=== PATIENT | female | born 1995 | race Caucasian/White ===

== ENCOUNTER 2018-03-03 09:44 | Outpatient (CLI) | payer MEDICAID, SELFPAY ==
[2018-03-03 10:24] LABS: Glucose,1 Hr (Glucola) 108 mg/dL (80-140)
[2018-03-03 11:48] LABS: HCT 32.4 % (36.0-46.0); HGB 10.9 g/dL (12.0-15.5); Mean Corp. HGB Concentration 33.6 g/dL (32.0-36.0); Mean Corpuscular Hemoglobin 29.8 pg (27.0-33.0); Mean Corpuscular Volume 88.5 fL (80-95); Platelet Count 259 x1000/uL (130-400); RBC 3.66 m/cumm (4.00-5.20); RBC Distribution Width 12.4 % (11.7-14.6); White Blood Cell Count 6.92 k/cumm (4.4-10.8)
== END 2018-03-03 10:04 ==
PROVIDERS: PCP Internal Medicine; Visit Provider Advanced Practice Midwife
DX: Z34.93 Encounter for supervision of normal pregnancy, unspecified, third trimester (principal)
CPT/HCPCS: 36415; 82950; 85027

== ENCOUNTER 2018-04-13 14:15 | Outpatient (REF) | payer MEDICAID, SELFPAY ==
[2018-04-17 16:07] LABS: Chlamydia Result Negative; GC Result Negative; Specimen Description CERVIX
== END 2018-04-13 14:35 ==
LOC: LBN 14:15
PROVIDERS: PCP Internal Medicine; Visit Provider Nurse Practitioner
DX: N89.8 Other specified noninflammatory disorders of vagina (principal); Z11.3 Encounter for screening for infections with a predominantly sexual mode of transmission
CPT/HCPCS: 87491; 87591

== ENCOUNTER 2018-04-26 14:00 | Observation (INO) | payer MEDICAID, SELFPAY | END 2018-04-26 19:05 | disposition home or self-care (01) | PROVIDERS: Admitting Provider Advanced Practice Midwife; PCP Internal Medicine; Visit Provider Advanced Practice Midwife | DX: O47.03 False labor before 37 completed weeks of gestation, third trimester (principal); Z04.3 Encounter for examination and observation following other accident; Z3A.36 36 weeks gestation of pregnancy | CPT/HCPCS: G0378 ==

== ENCOUNTER 2018-04-28 12:02 | Outpatient (REF) | payer MEDICAID, SELFPAY | END 2018-04-28 12:22 | LOC: LBN 12:02 | PROVIDERS: PCP Internal Medicine; Visit Provider Nurse Practitioner | DX: Z34.93 Encounter for supervision of normal pregnancy, unspecified, third trimester (principal); Z36.85 Encounter for antenatal screening for Streptococcus B | CPT/HCPCS: 87081 ==

== ENCOUNTER 2018-05-10 09:40 | Outpatient (CLI) | payer MEDICAID, SELFPAY | END 2018-05-10 10:00 | PROVIDERS: PCP Internal Medicine; Visit Provider Advanced Practice Midwife | DX: O9A.213 Injury, poisoning and certain other consequences of external causes complicating pregnancy, third trimester (principal); Z04.3 Encounter for examination and observation following other accident; W19.XXXA Unspecified fall, initial encounter; Z3A.38 38 weeks gestation of pregnancy | CPT/HCPCS: 59025 ==

== ENCOUNTER 2018-05-22 06:45 | Outpatient (CLI) | payer MEDICAID, SELFPAY ==
[2018-05-22 08:05] LABS: ROM Plus Negative
== END 2018-05-22 07:05 ==
PROVIDERS: PCP Internal Medicine; Visit Provider Obstetrics & Gynecology
DX: O36.8130 Decreased fetal movements, third trimester, not applicable or unspecified (principal); Z3A.40 40 weeks gestation of pregnancy
CPT/HCPCS: 84112; 59025

== ENCOUNTER 2018-05-26 10:06 | Outpatient (CLI) | payer MEDICAID, SELFPAY | END 2018-05-26 10:26 | PROVIDERS: PCP Internal Medicine; Visit Provider Advanced Practice Midwife | DX: O48.0 Post-term pregnancy (principal); Z3A.40 40 weeks gestation of pregnancy | CPT/HCPCS: 59025 ==

== ENCOUNTER 2018-05-28 19:20 | Inpatient (IN) | payer MEDICAID, SELFPAY ==
[2018-05-28 20:18] LABS: HCT 32.7 % (36.0-46.0); HGB 10.4 g/dL (12.0-15.5); Mean Corp. HGB Concentration 31.8 g/dL (32.0-36.0); Mean Corpuscular Hemoglobin 25.6 pg (27.0-33.0); Mean Corpuscular Volume 80.5 fL (80-95); Mean Platelet Volume 10.1 fL (8.0-11.0); Platelet Count 245 x1000/uL (130-400); RBC 4.06 m/cumm (4.00-5.20); RBC Distribution Width 14.4 % (11.7-14.6)
[2018-05-28] MEDS: Lactated Ringers 1,000 ML 125 ML IV (20:38)
[2018-05-29] MEDS: Acetaminophen 325 MG TAB 650 MG PO ×4 (01:13→19:51)
[2018-05-29] MEDS: Ibuprofen 600 MG TAB PO ×4 (01:14→19:51)
[2018-05-29] MEDS: Hamamelis Leaf/Glycerin 100 EACH BOX PR (08:24)
[2018-05-30] MEDS: Acetaminophen 325 MG TAB 650 MG PO ×4 (02:38→21:00)
[2018-05-30] MEDS: Ibuprofen 600 MG TAB PO ×4 (02:39→21:00)
[2018-05-31] MEDS: Acetaminophen 325 MG TAB 650 MG PO ×3 (01:28→12:17)
[2018-05-31] MEDS: Ibuprofen 600 MG TAB PO ×2 (06:53→12:16)
== END 2018-05-31 14:00 | disposition home or self-care (01) | DRG 807 ==
PROVIDERS: Admitting Provider Advanced Practice Midwife; PCP Internal Medicine; Visit Provider Advanced Practice Midwife
DX: O69.81X0 Labor and delivery complicated by cord around neck, without compression, not applicable or unspecified (principal); Z37.0 Single live birth; O48.0 Post-term pregnancy; Z3A.41 41 weeks gestation of pregnancy; O99.824 Streptococcus B carrier state complicating childbirth
CPT/HCPCS: 36415; 85027; 86850; 86900; 86901; J2540

== ENCOUNTER 2018-11-22 13:59 | Outpatient (CLI) | payer MEDICAID, SELFPAY ==
[2018-11-22 15:05] LABS: HCT 35.9 % (36.0-46.0); HGB 11.2 g/dL (12.0-15.5)
== END 2018-11-22 14:19 ==
PROVIDERS: PCP Internal Medicine; Visit Provider Obstetrics & Gynecology
DX: Z30.2 Encounter for sterilization (principal); Z01.812 Encounter for preprocedural laboratory examination
CPT/HCPCS: 36415; 86850; 86900; 86901; 85014; 85018

== ENCOUNTER 2018-11-23 11:32 | Day surgery (SDC) | payer MEDICAID, SELFPAY ==
[2018-11-23] VITALS (10 sets, daily range): BP systolic 100–136; BP diastolic 63–90; PULSE 65–103; RESP 13–24; TEMP 36.3–37.1; O2SAT 99–100
--- NOTE | 2018-11-23 08:37 | W.PM.HP.N ---
Assessment and Plan (1) Request for sterilization: Current visit: Yes Status: Acute plan laparoscopic bilateral salpingectomy/ligation consents signed with patient History of Present Illness Chief Complaint: desires permanennt [id number] YO desires permanent sterilization she has been counselled on non permanent methods of control She is 100% sure she wants permanent sterilization and has been counselled on the risk of regret especially in younger women and the risk of ectopic with failure Narrative: 24 Review of Systems Review of Systems All systems reviewed & are unremarkable except as noted in HPI and below PFSH Medical History Syncope, vasovagal (Resolved) Surgical History Cholecystectomy (09/10/16) Family History Mother No problems noted. Father Essential hypertension Grandmother Diabetes Grandfather H/O heart surgery Diabetes Grandmother No problems noted. 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 Pets and animals: No Duration: 45-60 minutes/day Frequency: 3-4 times per week Special gael needs: No Seatbelt use: always Helmet use: Yes Drive intox or ride w/intox retail delivery driver: No Water heater temp set <120 deg: Yes Working smoke detector in home: Yes Fire extinguisher in home: Yes Carbon monox detector in home: Yes Firearms in home: Yes Do you feel safe at home: Yes Do you feel safe in your relationship?: Yes Victim of physical abuse: No Victim of emotional abuse: No Victim of sexual abuse: No History History 3 Para 2 Hx # Term Pregnancies 2 Multiple births 0 Hx # Pregnancies 0 Ectopic pregnancies 0 AB induced 0 Hx Number of Living Children 2 AB spontaneous 1 Past Pregnancies Del. Date GA/Weeks # Outcome Route Wgt Sex Labor Lgth Anesthesia Location Prov Complic 06/29/18 41 No Successful vaginal 3.969 kg Male Kamilla Driver CNM Delivery Date: 06/29/18 On 07/07/18 @ 10:46 LabjeannetteGrazyna Loose nuchal cord, easily reduced. Attempt made to deliver shoulder, then legs were placed in [place], anterior shoulder easily delivered, with gentle pushing, the posterior shoulder was delivered. Meds Home Medications Medication Instructions Recorded Confirmed Type midodrine 2.5 mg tablet 2.5 mg PO DAILY 10/09/18 11/22/18 History rosuvastatin 10 mg tablet 5 mg PO DAILY 10/09/18 11/22/18 History biotin 1 mg PO DAILY 11/22/18 11/22/18 History ferrous sulfate [iron] 325 mg PO DAILY 11/22/18 11/22/18 History vitamin D3-folic acid 1 tab PO DAILY 11/22/18 11/22/18 History Allergies Allergy/AdvReac Type Severity Reaction Status Date / Time No Known Drug Allergies Allergy Verified 11/22/18 14:09 Exam Const General: healthy appearing Chest Chest: normal inspection of the chest Resp Effort & Inspection: normal respiratory effort Auscultation: clear to auscultation bilaterally Cardio Rate: regular rate Rhythm: regular rhythm Heart Sounds: S1 normal and S2 normal GI Inspection: normal to inspection Palpation: soft Percussion: normal to percussion Auscultation: normal bowel sounds
--- NOTE | 2018-11-23 08:45 | HPE_ITS ---
Assessment and Plan (1) Request for sterilization: Current visit: Yes Status: Acute plan laparoscopic bilateral salpingectomy/ligation consents signed with patient History of Present Illness Chief Complaint: desires permanennt sterilization 23 YO desires permanent sterilization she has been counselled on non permanent methods of control She is 100% sure she wants permanent sterilization and has been counselled on the risk of regret especially in younger women and the risk of ectopic with failure Narrative: 24 Review of Systems Review of Systems All systems reviewed & are unremarkable except as noted in HPI and below PFSH Medical History Syncope, vasovagal (Resolved) Surgical History Cholecystectomy (09/10/16) Family History Mother No problems noted. Father Essential hypertension Grandmother Diabetes Grandfather H/O heart surgery Diabetes Grandmother No problems noted. 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 Pets and animals: No Duration: 45-60 minutes/day Frequency: 3-4 times per week Special gael needs: No Seatbelt use: always Helmet use: Yes Drive intox or ride w/intox emergency vehicle driver: No Water heater temp set <120 deg: Yes Working smoke detector in home: Yes Fire extinguisher in home: Yes Carbon monox detector in home: Yes Firearms in home: Yes Do you feel safe at home: Yes Do you feel safe in your relationship?: Yes Victim of physical abuse: No Victim of emotional abuse: No Victim of sexual abuse: No History History 3 Para 2 Hx # Term Pregnancies 2 Multiple births 0 Hx # Pregnancies 0 Ectopic pregnancies 0 AB induced 0 Hx Number of Living Children 2 AB spontaneous 1 Past Pregnancies Del. Date GA/Weeks # Outcome Route Wgt Sex Labor Lgth Anesthesia Location Prov Complic 06/29/18 41 No Successful vaginal 3.969 kg Male Kamilla Driver CNM Delivery Date: 06/29/18 On 07/07/18 @ 10:46 LabjeannetteGrazyna Loose nuchal cord, easily reduced. Attempt made to deliver shoulder, then legs were placed in [place], anterior shoulder easily delivered, with gentle pushing, the posterior shoulder was delivered. Meds Home Medications Medication Instructions Recorded Confirmed Type midodrine 2.5 mg tablet 2.5 mg PO DAILY 10/09/18 11/22/18 History rosuvastatin 10 mg tablet 5 mg PO DAILY 10/09/18 11/22/18 History biotin 1 mg PO DAILY 11/22/18 11/22/18 History ferrous sulfate [iron] 325 mg PO DAILY 11/22/18 11/22/18 History vitamin D3-folic acid 1 tab PO DAILY 11/22/18 11/22/18 History Allergies Allergy/AdvReac Type Severity Reaction Status Date / Time No Known Drug Allergies Allergy Verified 11/22/18 14:09 Exam Const General: healthy appearing Chest Chest: normal inspection of the chest Resp Effort & Inspection: normal respiratory effort Auscultation: clear to auscultation bilaterally Cardio Rate: regular rate Rhythm: regular rhythm Heart Sounds: S1 normal and S2 normal GI Inspection: normal to inspection Palpation: soft Percussion: normal to percussion Auscultation: normal bowel sounds
[2018-11-23] MEDS: Lactated Ringers 1,000 ML 125 ML IV (12:18)
--- NOTE | 2018-11-23 13:32 | FALL_PTH ---
PATIENT: Carlos Enrique Lewis LOC: [facility] U#:[id number] AGE/SX: 23/F ROOM: RE11/23/[address]: Tabitha Argueta MD : 1995 BED: DIS: 11/23/2018 SPEC #: [id number] RECD: 11/23/18 18:08 STATUS: [facility] #: [id number] OLIVER: 11/23/18 13:[address]: Tabitha Argueta DEPT: Surgical Specimen RECD BY: Roya Reid ENTERED: 11/23/18 18:09 SP TYPE: Fall OTHR DR: Janine Padron Tissues: 1 - FALLOPIAN TUBE (STERILIZATION) 2 - FALLOPIAN TUBE (STERILIZATION) Procedures: GROSS AND MICRO LEVEL 2 Comments: [id number]
[2018-11-23] MEDS: Bupivacaine 0.25% Pres-Free 30 ML VIAL (13:38)
--- NOTE | 2018-11-24 09:37 | ROE_ITS ---
DATE OF PROCEDURE: November 23, 2018 PREOPERATIVE DIAGNOSIS: Desires permanent sterilization. POSTOPERATIVE DIAGNOSIS: Same. PROCEDURE: Laparoscopic bilateral salpingectomy. SURGEON: Tabitha Argueta M.D. ANESTHESIA: General. COMPLICATIONS: None. ESTIMATED BLOOD LOSS: < 10 cc's FLUIDS: 600 cc's LR URINE OUTPUT: 100 cc's FINDINGS: Normal uterus, bilateral ovaries, excised tubes at the end of the procedure. Ureters iden tified along the bilateral pelvic sidewall. Normal liver and appendix. PROCEDURE: The patient was taken to the Operating Room where she was properly identified. She was t hen placed on the operating table in the dorsal supine position. A general anesthesia was induced wi thout difficulty. She was then placed in the dorsal lithotomy position and prepped and draped in a n ormal sterile fashion. A formal time-out procedure was then performed, confirming patient and proced ure. A bi-valved speculum was placed. The cervix was visualized, grasped on the anterior lip with a single-tooth tenaculum and a uterine manipulator was advanced without difficulty. The speculum was removed. The surgeon changed her gloves and attention was then turned to the abdomen, where an infra umbilical injection of 0.25% Marcaine was made. A 5 mm incision was made along the prior laparoscopy scar. The Veress needle was placed intraperitoneally without difficulty. Intraperitoneal location was confirmed with a fluid-filled syringe and a drop in pressure. The abdomen was then insufflated w ith C02 gas, the Veress needle removed and the 5 mm port advanced under direct visualization. Inspec tion of the pelvis ensued with above findings. The patient was then placed in Trendelenburg position and the right and left lower quadrant ports were placed by first transilluminating, making a 5 mm enrique bcuticular incision and advancing each port under direct visualization. Attention was then turned to the right fallopian tube, which was identified out to its fimbriated end . The fimbria was grasped and the tube was excised along the mesosalpinx and truncated at the level of the tube and uterus. Attention was then turned to the opposite side and again in a similar fashio n the fallopian tube was identified, followed out to the fimbriated end. The mesosalpinx was cauteri zed along its length, removing the tube and excising the tube at the level of the uterine junction. Both tubes were removed through the 5 mm port. Hemostasis was confirmed. The abdomen was de-sufflat ed of C02 gas, again with decrease pressure. Hemostasis was confirmed. All of the ports were remove d and the skin was closed with #4-0 Vicryl in a subcuticular fashion and skin glue was applied. Spon ge, lap, needle and instrument counts were correct x2. The patient's uterine manipulator and single- tooth tenaculum were removed and there was no bleeding evident.
== END 2018-11-23 17:22 | disposition home or self-care (01) ==
PROVIDERS: PCP Internal Medicine; Visit Provider Obstetrics & Gynecology
PROC: (CPT 58661; principal; 2018-11-23 13:00)
DX: Z30.2 Encounter for sterilization (principal)
CPT/HCPCS: 58661; NC; 88302; J1100; J1885; J2250; J2405

== ENCOUNTER 2021-05-20 16:18 | Outpatient (REF) | payer MEDICAID, SELFPAY ==
--- NOTE | 2021-05-20 15:10 | PAPFT_PTH ---
PATIENT: Carlos Enrique Lewis LOC: [facility] U#:[id number] AGE/SX: 26/F ROOM: RE05/20/[address]: Nicole Barcenas NP : 1995 BED: DIS: 05/20/2021 SPEC #: [id number] RECD: 05/20/21 17:06 STATUS: [facility] #: [id number] OLIVER: 05/20/21 15:[address]: Nicole Barcenas NP DEPT: [facility] Cytology RECD BY: Roya Reid ENTERED: 05/20/21 17:10 SP TYPE: PAPFT OTHR DR: Janine Padron Tissues: 1 - CX/ENDOCX FOR PAP SMEARS Procedures: PAP THIN PREP/UVM Screening Comments: [id number] (CHLAMYDIA/GC)
[2021-05-21 13:17] LABS: Chlamydia Result Negative (Negative); GC Result Negative (Negative)
== END 2021-05-20 16:19 | disposition home or self-care (01) ==
LOC: LBN 16:18
PROVIDERS: PCP Internal Medicine; Visit Provider Nurse Practitioner Women's Health
DX: Z12.4 Encounter for screening for malignant neoplasm of cervix (principal); Z11.3 Encounter for screening for infections with a predominantly sexual mode of transmission
CPT/HCPCS: 87491; 87591; 88142

== ENCOUNTER 2022-04-16 01:47 | Outpatient (CLI) | payer MEDICAID, SELFPAY ==
[2022-04-16 16:09] LABS: HCT 37.9 % (36.0-46.0); HGB 12.6 g/dL (11.2-15.7); MCH 30.1 pg (27.0-33.0); MCHC 33.2 % (32.0-36.0); MCV 91 fL (80-95); MPV 8.9 fL (8.0-11.0); Platelet Count 262 10^3/uL (130-400); RBC 4.19 10^6/uL (3.93-5.22); RDW 12.2 % (11.7-14.6); RDW-SD 40.5 fL; WBC 6.63 10^3/uL (4.4-10.8)
[2022-04-16 17:10] LABS: Anion Gap 6.3 mmol/L (3-11); BUN 12 mg/dL (7-18); CO2 29.7 mmol/L (21.0-32.0); CREATININE 0.9 mg/dL (0.55-1.02); Calcium 9.6 mg/dL (8.5-10.1); Chloride 107 mmol/L (98-107); Glucose 101 mg/dL (74-106); Potassium 3.9 mmol/L (3.5-5.1); Sodium 143 mmol/L (136-145)
== END 2022-04-16 01:48 | disposition home or self-care (01) ==
LOC: LBO 01:48
PROVIDERS: PCP Internal Medicine; Visit Provider Obstetrics & Gynecology Gynecology
DX: N92.0 Excessive and frequent menstruation with regular cycle (principal); Z01.818 Encounter for other preprocedural examination; Z01.812 Encounter for preprocedural laboratory examination
CPT/HCPCS: 36415; 80048; 85027; 86850; 86900; 86901

== ENCOUNTER 2022-04-16 15:46 | Outpatient (REF) | payer MEDICAID, SELFPAY ==
--- NOTE | 2022-04-16 15:00 | ENDOMET_PTH ---
PATIENT: Carlos Enrique Lewis LOC: [facility] U#:[id number] AGE/SX: 27/F ROOM: RE04/16/[address]: Jojo Higgins : 1995 BED: DIS: 04/16/2022 SPEC #: [id number] RECD: 04/19/22 11:07 STATUS: [facility] #: [id number] OLIVER: 04/16/22 15:[address]: Jojo Higgins DEPT: Surgical Specimen RECD BY: Katelynn Ricks ENTERED: 04/19/22 11:08 SP TYPE: Endomet OTHR DR: Janine Padron Tissues: 1 - ENDOMETRIUM BX/CURRETTE Procedures: GROSS AND MICRO LEVEL 4 Comments: [id number]
== END 2022-04-16 15:47 | disposition home or self-care (01) ==
LOC: LBN 15:46
PROVIDERS: PCP Internal Medicine; Visit Provider Obstetrics & Gynecology Gynecology
DX: N85.8 Other specified noninflammatory disorders of uterus (principal); T38.5X5A Adverse effect of other estrogens and progestogens, initial encounter; N93.8 Other specified abnormal uterine and vaginal bleeding
CPT/HCPCS: 88305

== ENCOUNTER 2022-04-21 09:19 | Day surgery (SDC) | payer MEDICAID, SELFPAY ==
[2022-04-21 09:36] VITALS: BP 106/75; PULSE 74; RESP 18; TEMP 36.9; O2SAT 98
[2022-04-21] MEDS: Lactated Ringers 1,000 ML 125 ML IV (10:16)
--- NOTE | 2022-04-21 10:40 | ANES.PREOP_ITS ---
General Info Date of Service Date Performed: 04/21/22 Height: 5 ft 6 in Weight: 87.9 kg Body Mass Index (BMI): 31.2 Surgical Procedure: Operation Date: 04/21/22 11:40 Proposed Procedure Side Surgeon p Endometrial Ablation-HTA Jojo Higgins MD Meds Allergies and Home Medications Allergies Allergy/AdvReac Type Severity Reaction Status Date / Time No Known Drug Allergies Allergy Verified 04/21/22 09:48 Home Medication Medication Instructions Recorded Unknown [No Known Home Meds] 04/18/22 Current Visit Medications: Current Medications Generic Name Dose Route Start Last Admin Trade Name Freq PRN Reason Stop Dose Admin Ringer's Solution 1,000 mls @ 125 mls/hr 04/21/22 06:00 04/21/22 10:16 IV 05/20/22 23:59 125 mls/hr INFUSION JAZMYNE Administration IV Miscellaneous Supplies 1 each 04/21/22 06:00 Iv Access IV 05/20/22 23:59 DIRECTED JAZMYNE Sodium Chloride 0 ml 04/21/22 06:00 Normal Saline Flush 10 Ml Syr IV 05/20/22 23:59 PRN PRN Sodium Chloride 0 ml 04/21/22 06:00 Normal Saline 10 Ml Vial IJ 05/20/22 23:59 DIRECTED PRN Sterile Water 0 ml 04/21/22 06:00 Water,Injection,Sterile 10 Ml Vial IJ 05/20/22 23:59 DIRECTED PRN PFSH Active Problems Active Problems: Problem Status Onset Code IUD (intrauterine device) in place Z97.5 Menorrhagia N92.0 Medical History Medical History DVT of leg (deep venous thrombosis) r/t OCP use Syncope, vasovagal 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 Treated w/ Midodrine Surgical History Surgical History Cholecystectomy (09/10/16) Shobha DORAN SURGEON @ [facility]. W/O COMPLICATIONS. H/O bilateral salpingectomy Tobacco Smoking/Tobacco Use Status: Never Alcohol Alcohol Intake: current Alcohol intake frequency: a few times a week Alcohol type: hard liquor Substance Use Substance use: Never Substance use type: does not use Prental History History 3 Para 2 Hx # Term Pregnancies 2 Multiple births 0 Hx # Pregnancies 0 Ectopic pregnancies 0 AB induced 0 Hx Number of Living Children 2 AB spontaneous 1 Past Pregnancies Del. Date GA/Weeks # Preg Succ Route Wgt Sex Labor Lgth Anesth esia Location Prov Complic 06/29/18 41 No vaginal 3968.933 g Male Kamilla Driver CNM Delivery Date: 06/29/18 Last Updated by: Grazyna Dee Loose nuchal cord, easily reduced. Attempt made to deliver shoulder, then legs were placed in [place], anterior shoulder easily delivered, with gentle pushing, the posterior shoulder was delivered. Vital Signs and Lab Results Vital Signs Most Recent Vital Signs in EMR: Most Recent Vital Signs Temp Pulse Resp BP Pulse Ox 36.9 C 74 18 106/75 98 04/21/22 09:36 04/21/22 09:36 04/21/22 09:36 04/21/22 09:36 04/21/22 09:36 Point of Care Results Point of Care Results: POC- Test(urine) Negative 04/21/22 10:17 Lab Results Blood Type / Crossmatch: Patient ABO/Rh A Positive 04/16/22 Antibody Screen NEGATIVE 04/16/22 Complete Blood Count: White Blood Count 6.63 10^3/uL (4.4-10.8) 04/16/22 16:00 Red Blood Count 4.19 10^6/uL (3.93-5.22) 04/16/22 16:00 Hemoglobin 12.6 g/dL (11.2-15.7) 04/16/22 16:00 Hematocrit 37.9 % (36.0-46.0) 04/16/22 16:00 Platelet Count 262 10^3/uL (130-400) 04/16/22 16:00 Complete Metabolic Panel: Sodium 143 mmol/L (136-145) 04/16/22 16:00 Potassium 3.9 mmol/L (3.5-5.1) 04/16/22 16:00 Chloride 107 mmol/L (98-107) 04/16/22 16:00 Carbon Dioxide 29.7 mmol/L (21.0-32.0) 04/16/22 16:00 BUN 12 mg/dL (7-18) 04/16/22 16:00 Creatinine 0.9 mg/dL (0.55-1.02) 04/16/22 16:00 Est GFR (CKD-EPI 2020) 89.30 (mL/min/1.73m2) 04/16/22 16:00 Calcium 9.6 mg/dL (8.5-10.1) 04/16/22 16:00 Glucose 101 mg/dL (74-106) 04/16/22 16:00 Liver Function Panel: No Data to Display Coagulation Panel: No Data to Display Cardiac Panel: No Data to Display Arterial Blood Gas: No Data to Display Venous Blood Gas: No Data to Display Pancreas Panel: No Data to Display Thyroid Panel: No Data to Display Infectious Disease: No Data to Display Blood Cultures: No Data to Display Toxicology Panel: No Data to Display Panel: No Data to Display Anesthesia Assessment and Plan Anesthesia History Personal History: No History of Anesthesia Complications Family History: No Family History of Anesthesia Complications Exercise Tolerance Exercise Tolerance: Metabolic Equivalents>4 Pertinent Negatives Pertinent Negatives: No Symptoms of GERD, No Major Cardiovascular Symptoms or Complaints and No Major Pulmonary Symptoms or Complaints Cardiac & Pulmonary Exam Cardiac Exam: Normal S1/S2 Heart Sounds Pulmonary Exam: Clear Bilateral Breath Sounds Implantable Cardiac Device Does patient have a Pacemaker or an ICD?: No Airway Exam Known Difficult Airway: No Mallampati Class: 1 Mouth Opening: Normal (> 3cm) Thyromental Distance: Greater than 3 cm Neck Range of Motion: Full ROM Neck Circumference: Normal Teeth Condition: Normal Dentition ASA Classification ASA Score: ASA 2 Emergency Case?: No NPO Status NPO Status: NPO Clears >2 hours, Solids >8 hours Status Status: Negative HCG Anesthesia Plan Resuscitation Status: Full Code Anesthesia Technique: General Anesthesia Airway Planned: LMA Monitors Used: Standard Monitors
[2022-04-21 10:43] VITALS: BMI 31.2
[2022-04-21] MEDS: Bupivacaine 0.25% Pres-Free 30 ML VIAL (13:31)
[2022-04-21] MEDS: Silver Nitrate Stick 1 EACH (13:55)
[2022-04-21 14:07] VITALS: BP 115/77; PULSE 72; RESP 20; TEMP 35.7; O2SAT 98
--- NOTE | 2022-04-21 14:19 | ROE_ITS ---
Date of service: 04/21/22 Time of Service: 14:19 Operative Note Operative Note DATE OF PROCEDURE: 04/21/22 PRE-OP DIAGNOSIS: abnormal uterine bleeding POST-OP DIAGNOSIS: same PROCEDURE: HTA endometrial ablation SURGEON: Jojo Higgins Refer to Anesthesia Record ESTIMATED BLOOD LOSS: 0 PATHOLOGY: none sent COMPLICATIONS: None Patient was transported to: same day Patient's condition: stable Indications: 27yo female with a longstanding history of frequent and heavy menses.? No response to the insertion IUD in 12/2021.? Patient not a candidate for estrogen-containing OCPs secondary to history of DVT while using OCPs as a teenager.? She was counseled regarding treatment options and has accepted an endometrial ablation.? Findings: Uterus sounded to 10cm. Uterine cavity thickened with active bleeding. No polyps. Both tubal ostia visualized. Satisfactory treatment response. Procedure Description: Patient was taken to the operating room where she was placed in the dorsal supine position and general anesthesia was administered without difficulty. She was then placed in the dorsolithotomy position in yellowfin stirrups and prepped and draped in the usual sterile fashion. SCDs were in place. No antibiotics were required. After a surgical timeout was performed a bivalve speculum was placed in the patient's vagina. The anterior lip of the cervix was infiltrated with 1 cc 0.25% bupivacaine and a single-tooth tenaculum was used to grasp the anterior lip of the cervix. A paracervical block was performed with infiltration of 5 cc of 0.25% bupivacaine at the 4 o'clock and 8 o'clock paracervical spaces respectively. Cervix was then sequentially dilated to a maximum of 18 Chávez. A hysteroscope sheath was inserted into the uterine cavity and a cavity assessment was performed with the above noted findings. The tip of the hysteroscope sheath was positioned to allow visualization of the uterine fundus, both tubal ostia in the midportion of the uterine cavity. The sheath was protected from the vaginal fritz by the speculum. Heated isotonic saline was then administered via gravity into the uterus through the sheath. Once a safety assessment was performed the treatment phase of the procedure began and under direct observation the uterine cavity was treated with heated isotonic saline at 90 ?C for 10 minutes. Intrauterine cool-down phase was performed for 1 minute. The uterine cavity was carefully assessed with hysteroscope at the end of the procedure and the uterus was noted to have a satisfactory treatment effect. The integrity of the uterine cavity was confirmed. After these findings the hysteroscope was removed as were the instruments removed from the vagina. Tenaculum site was treated with application of Silver Nitrate and noted to be hemostatic. The patient was placed in the dorsal supine position successfully awakened from anesthesia and tra nsported to day surgery unit in stable condition. All sponge lap needle counts correct x2
[2022-04-21 14:35] VITALS: BP 125/84; PULSE 71; RESP 16; TEMP 36.3; O2SAT 99
[2022-04-21] MEDS: oxyCODONE 5 mg/Acetaminophen 325 mg TAB PO (14:39)
--- NOTE | 2022-04-21 14:53 | W.ANESPOSTOP ---
Postoperative Evaluation Date, Time and Location Date Performed: 04/21/22 Time Performed: 14:53 Patient Location: Day Surgery Unit Vital Signs Most Recent Imported Vital Signs: Most Recent Vital Signs Temp Pulse Resp BP Pulse Ox 36.3 C L 71 16 125/84 99 04/21/22 14:35 04/21/22 14:35 04/21/22 14:35 04/21/22 14:35 04/21/22 14:35 Pain Score Most Recent Pain Score: Most Recent Pain Score Pain Level 8 04/21/22 14:35 Assessment Mental Status: Awake (Alert & Oriented to Patient Baseline) Airway and Respiratory Function: Patent airway with normal (patient baseline) respiratory exam Cardiovascular Function: Hemodynamically Stable Hydration Status: Adequately Hydrated Nausea & Vomiting: No Nausea or Vomiting Pain: Pain is Moderate or Severe (Dr. Higgins here to talk to patient and address home medication) Postoperative Pain Management: Pain being addressed with medication Peripheral Nerve Block: Patient did not receive a nerve block
[2022-04-21 15:11] VITALS: BP 129/79; PULSE 68; RESP 18; TEMP 36.6; O2SAT 100
--- NOTE | 2022-04-21 16:50 | NUR.NOTE ---
Addendum entered by Anjali Young 04/21/22 18:13: 1805: DC paperwork put in envelop and in out box for morning mail. Address Ritchie requested it be sent to: [address], [place] [address] Original Note: [id number]: this nurse spoke to Ritchie on phone and provided follow up appt. information and medications received today and whenNursing Note:
== END 2022-04-21 15:27 | disposition home or self-care (01) ==
PROVIDERS: PCP Nurse Practitioner Family; Visit Provider Obstetrics & Gynecology Gynecology
PROC: (CPT 58353; principal; 2022-04-21 11:30)
DX: N93.9 Abnormal uterine and vaginal bleeding, unspecified (principal)
CPT/HCPCS: 58563; 81025; J1100; J1885; J2405